=== PATIENT | female | born 1970 | race Caucasian/White ===

== ENCOUNTER 2019-11-17 08:52 | Inpatient (IN) | payer OTHER ==
[2019-11-19] MEDS ORDERED: Lidocaine 1% with EPINEPHrine 1:100,000 50 ML MDV ONE (06:58)
[2019-11-19] MEDS ORDERED: Bupivacaine 0.5% 50 ML MDV ONE (06:58)
[2019-11-19] MEDS ORDERED: Ketamine 500 MG/5 ML MDV IV SCH (07:30)
[2019-11-19] MEDS ORDERED: Magnesium Sulfate 3 GM in Sodium Chloride 0.9% 100 ML IV SCH (07:30)
[2019-11-19] MEDS ORDERED: Ketamine 50 MG in Sodium Chloride 0.9% 49.5 ML IV SCH (07:30)
[2019-11-19] MEDS ORDERED: Celecoxib 200 MG Cap PO ONE (08:30)
[2019-11-19] MEDS ORDERED: Acetaminophen 500 MG Tab PO ONE (08:30)
[2019-11-19] MEDS ORDERED: Scopolamine 1.5 MG Transdermal Patch TOP SCH (08:30)
[2019-11-19] MEDS ORDERED: Dextrose 5%-Lactated Ringers 1,000 ML IV SCH (08:45)
[2019-11-19] MEDS ORDERED: Ondansetron 4 MG/2 ML SDV ONE (08:52)
[2019-11-19] MEDS ORDERED: fentaNYL 250 MCG/5 ML SDV ONE ×2 (08:52→10:37)
[2019-11-19] MEDS ORDERED: Succinylcholine 200 MG/10 ML MDV ONE (08:52)
[2019-11-19] MEDS ORDERED: Glycopyrrolate 0.2 MG/ML 5 ML MDV ONE (08:52)
[2019-11-19] MEDS ORDERED: Propofol 200 MG/20 ML SDV ONE (08:52)
[2019-11-19] MEDS ORDERED: Neostigmine Methylsulfate 1 MG/ML 5 ML Syringe ONE (08:52)
[2019-11-19] MEDS ORDERED: Dexamethasone 4 MG/ML SDV ONE (08:52)
[2019-11-19] MEDS ORDERED: Rocuronium 50 MG/5 ML Vial ONE (08:52)
[2019-11-19] MEDS ORDERED: cefOXitin 2 GM in Sodium Chloride 0.9% 50 ML IV ONE (09:45)
[2019-11-19] MEDS ORDERED: Naloxone 0.4 MG/ML SDV IV PRN (10:08)
[2019-11-19] MEDS: Meropenem 500 MG SDV ONE ×3 (10:58→11:48)
[2019-11-19] MEDS ORDERED: Labetalol 20 MG/4 ML Syringe ONE (10:58)
[2019-11-19] MEDS ORDERED: Lactated Ringers 1,000 ML ONE (11:56)
[2019-11-19] MEDS ORDERED: fentaNYL 100 MCG/2 ML SDV ONE (12:20)
[2019-11-19] MEDS ORDERED: hydrOXYzine HCL 100 MG/2 ML SDV IM ONE (12:27)
[2019-11-19] MEDS: HYDROmorphone/Normal Saline 15 MG/30 ML PCA IV PRN (12:35)
[2019-11-19] MEDS ORDERED: fentaNYL 100 MCG/2 ML SDV IVPUSH ONE (12:44)
[2019-11-19] MEDS ORDERED: Acetaminophen 1,000 MG in Premix Bag 1 BAG IV ONE (13:30)
[2019-11-19] MEDS ORDERED: Midazolam 1 MG/ML 2 ML SDV IVPUSH ONE (13:43)
[2019-11-19] MEDS ORDERED: diphenhydrAMINE 50 MG/ML SDV IVPUSH PRN (15:18)
[2019-11-19] MEDS ORDERED: Acetaminophen 500 MG Tab PO PRN (15:18)
[2019-11-19] MEDS ORDERED: Calcium Gluconate 10% 1 GM/10 ML SDV IVPUSH PRN (15:18)
[2019-11-19] MEDS ORDERED: Labetalol 20 MG/4 ML Syringe IVPUSH PRN (15:18)
[2019-11-19] MEDS ORDERED: Ondansetron 4 MG/2 ML SDV IVPUSH PRN (15:18)
[2019-11-19] MEDS ORDERED: Metoclopramide 10 MG/2 ML SDV IVPUSH PRN (15:18)
[2019-11-19] MEDS ORDERED: hydrOXYzine HCL 100 MG/2 ML SDV IM PRN (15:18)
[2019-11-19] MEDS ORDERED: MVI, Adult with Vitamin K 10 ML, Thiamine 200 MG, Chromium/Copper/Mang/Selen/Zn 1 ML in... IV SCH ×4 (16:00)
[2019-11-19] MEDS: Acetaminophen 500 MG Tab PO SCH ×2 (16:43→23:55)
[2019-11-19] MEDS: Cyclobenzaprine 10 MG Tab PO PRN (16:50)
[2019-11-19] MEDS: cefOXitin 2 GM in Sodium Chloride 0.9% 50 ML IV SCH ×2 (17:32→23:55)
[2019-11-19] MEDS: Heparin Sodium 5,000 Units/ML Vial SUBCUT SCH (17:35)
[2019-11-19] MEDS ORDERED: Pantoprazole 40 MG Vial IVPUSH SCH (20:00)
[2019-11-19] MEDS: Dextrose 5%-Lactated Ringers 1,000 ML IV SCH (23:23)
[2019-11-20] MEDS: Cyclobenzaprine 10 MG Tab PO PRN ×3 (00:50→21:44)
[2019-11-20] MEDS ORDERED: Iopamidol 510 MG/ML 50 ML SDV PO ONE (04:42)
[2019-11-20] MEDS ORDERED: Iopamidol 612 MG/ML 50 ML SDV PO ONE (05:08)
[2019-11-20] MEDS: Dextrose 5%-Lactated Ringers 1,000 ML IV SCH ×3 (05:25→12:42)
[2019-11-20] MEDS: Heparin Sodium 5,000 Units/ML Vial SUBCUT SCH ×2 (05:27→18:24)
[2019-11-20] MEDS: cefOXitin 2 GM in Sodium Chloride 0.9% 50 ML IV SCH ×3 (05:29→18:23)
[2019-11-20] MEDS: Acetaminophen 500 MG Tab PO SCH ×3 (07:12→21:33)
[2019-11-20] MEDS: SCOPOLAMINE PATCH CHECK TOP SCH (08:49)
--- NOTE | 2019-11-20 09:25 | CR ---
[facility] HISTORY: Postbariatric surgery FINDINGS: Patient swallowed water-soluble contrast. Upright views of the abdomen show no evidence of extravasation or obstruction. There is a surgical drain in the right upper quadrant. IMPRESSION: Status post bariatric surgery No extravasation or obstruction seen
[2019-11-20] MEDS: Celecoxib 200 MG Cap PO SCH ×2 (09:31→21:33)
[2019-11-20] MEDS: Bisacodyl 5 MG Tab PO SCH ×2 (09:31→21:34)
[2019-11-20] MEDS: buPROPion 150 MG Tab.SR PO SCH ×2 (09:31→21:33)
[2019-11-20] MEDS: Docusate Sodium 100 MG Cap PO SCH ×2 (09:32→21:33)
[2019-11-20] MEDS: MVI, Adult with Vitamin K 10 ML, Thiamine 200 MG, Chromium/Copper/Mang/Selen/Zn 1 ML in... IV SCH ×4 (16:51)
[2019-11-20] MEDS: Pantoprazole 40 MG Delayed-Release Granules 1 Packet PO SCH (21:33)
[2019-11-21] MEDS: cefOXitin 2 GM in Sodium Chloride 0.9% 50 ML IV SCH ×3 (00:18→12:39)
[2019-11-21] MEDS: Dextrose 5%-Lactated Ringers 1,000 ML IV SCH (03:34)
[2019-11-21] MEDS: Heparin Sodium 5,000 Units/ML Vial SUBCUT SCH ×2 (05:25→17:40)
[2019-11-21] MEDS: Acetaminophen 500 MG Tab PO SCH ×3 (05:25→21:11)
[2019-11-21] MEDS: HYDROmorphone/Normal Saline 15 MG/30 ML PCA IV PRN (06:45)
[2019-11-21] MEDS ORDERED: Cyanocobalamin (Vitamin B12) 1,000 MCG/ML SDV IM ONE (09:00)
[2019-11-21] MEDS: Bisacodyl 5 MG Tab PO SCH ×2 (09:15→21:11)
[2019-11-21] MEDS: Celecoxib 200 MG Cap PO SCH ×2 (09:15→21:11)
[2019-11-21] MEDS: Docusate Sodium 100 MG Cap PO SCH ×2 (09:15→21:11)
[2019-11-21] MEDS: buPROPion 150 MG Tab.SR PO SCH ×2 (09:15→21:11)
[2019-11-21] MEDS: SCOPOLAMINE PATCH CHECK TOP SCH (09:16)
[2019-11-21] MEDS: oxyCODONE 5 MG Tab PO PRN ×2 (11:06→15:48)
[2019-11-21] MEDS: Cyclobenzaprine 10 MG Tab PO PRN (14:12)
[2019-11-21] MEDS: MVI, Adult with Vitamin K 10 ML, Thiamine 200 MG, Chromium/Copper/Mang/Selen/Zn 1 ML in... IV SCH ×4 (16:50)
[2019-11-21] MEDS: Pantoprazole 40 MG Delayed-Release Granules 1 Packet PO SCH (21:11)
[2019-11-22] MEDS: Heparin Sodium 5,000 Units/ML Vial SUBCUT SCH (06:11)
[2019-11-22] MEDS: Acetaminophen 500 MG Tab PO SCH (06:11)
[2019-11-22] MEDS: Cyclobenzaprine 10 MG Tab PO PRN (06:15)
[2019-11-22] MEDS: oxyCODONE 5 MG Tab PO PRN ×2 (06:15→10:23)
[2019-11-22] MEDS ORDERED: Magnesium Hydroxide 400 MG/5 ML Susp 30 ML Cup PO ONE (08:17)
[2019-11-22] MEDS: Bisacodyl 5 MG Tab PO SCH (10:07)
[2019-11-22] MEDS: buPROPion 150 MG Tab.SR PO SCH (10:07)
[2019-11-22] MEDS: Docusate Sodium 100 MG Cap PO SCH (10:07)
[2019-11-22] MEDS: Celecoxib 200 MG Cap PO SCH (10:07)
--- NOTE | 2019-11-22 12:39 | PN ---
DATE OF SERVICE: 11/20/2019 The patient has been afebrile with stable vital signs. Good urine output overnight. Upper GI x-ray looks good and labs likewise look satisfactory. We will back down the IV rate, go to a step-2 diet today, and restart her pertinent oral medications. MISSING PERSONS INVESTIGATOR only for today. Randy Chinchilla MD /[id number]
--- NOTE | 2019-11-22 12:51 | PN ---
DATE OF SERVICE: 11/21/2019 The patient has been afebrile with stable vital signs. Oral intake was fairly good, and we will go up to a step-3 diet today and oral pain medications. She may be ready for discharge home tomorrow. Randy Chinchilla MD /[id number]
--- NOTE | 2019-11-23 12:43 | DISCH ---
FINAL DIAGNOSES: 1. Partial small bowel resection with jejunojejunostomy. 2. Vascular compression of the duodenum. SECONDARY DIAGNOSES: 1. Bariatric surgery status. 2. History of iron deficiency anemia. OPERATIVE PROCEDURES: Done on 11/18, exploratory laparotomy with lysis of adhesions and: 1. Small-bowel resection with takedown revision of the jejunojejunostomy. 2. Formation of Sherri-en-Y duodenojejunostomy for treatment of vascular compression of the duodenum. SUMMARY: This is a 49-year-old female status post previous Sherri-en-Y gastric bypass, presenting with some ongoing abdominal pain. Workup was consistent with the patient having both partial small bowel obstruction at the jejunojejunostomy. It was notable also that, compared to the prior CT scan, her duodenum in the 2nd and 3rd portions was quite strikingly dilated, and there appeared to be development of a narrowing of the angle between the superior mesenteric artery and aorta, causing vascular compression of the duodenum. On the date of admission, the patient underwent exploratory laparotomy. The small bowel was resected at the level where the Sherri limb entered the jejunojejunostomy, which appeared to be the point of partial obstruction in that area. This was revised somewhat more distally to facilitate more weight loss. She also then had a Sherri-en-Y duodenojejunostomy formed to decompress the duodenum above the level of the vascular compression. Postoperatively, she has done well. At this point, she is tolerating a step-3 gastric bypass diet and will be discharged to home. Followup will be with Shaylee Garrett at [facility] on 11/30/2019. MEDICATIONS ON DISCHARGE: Will include: 1. Oxycodone 5 mg p.o. q.4 hours p.r.n. pain, #42. 2. Flexeril 10 mg p.o. t.i.d. p.r.n. muscle spasm, #30, refill x1. 3. Tylenol 1 g p.o. q.i.d. p.r.n. 4. We will send her home with two doses of milk of magnesia to take p.r.n. constipation. She will be instructed to hold her naltrexone until she is off the oxycodone.
--- NOTE | 2019-11-24 16:13 | OR ---
DATE OF PROCEDURE: 11/19/2019 SURGEON: Randy Chinchilla MD PREOPERATIVE DIAGNOSES: 1. Partial small bowel obstruction at jejunojejunostomy. 2. Vascular compression of duodenum. POSTOPERATIVE DIAGNOSES: 1. Partial small bowel obstruction at jejunojejunostomy. 2. Vascular compression of duodenum. OPERATIVE PROCEDURES: Exploratory laparotomy with lysis of adhesions: 1. Small bowel resection (22306). 2. Formation of Sherri-en-Y duodenojejunostomy (18321). 3. Takedown of duodenal bands associated with vascular compression of duodenum (40168). ANESTHESIA: General. RN TRANSITIONAL: Shaylee Garrett PA-C INDICATIONS FOR PROCEDURE: A 49-year-old status post Sherri-en-Y gastric bypass, presenting with some postprandial upper abdominal pain. CT scan is suggestive of some angulation and distention of the area of the jejunojejunostomy, revealing an area of partial obstruction. The patient was also noted upon interval CT scan to have developed a marked dilation of the 2nd and 3rd portions of the duodenum. Examination of the inferior mesenteric artery and aorta in that area do show some narrowing and probable compression of the duodenum at that level consistent with vascular compression of the duodenum. The plan at this point will be to proceed with exploratory laparotomy with lysis of adhesions and release of the obstruction, possible revision of the jejunojejunostomy, and while we are in the abdomen, it would appear to be prudent to decompress the duodenum, in view of the probable vascular compression of the duodenum. Potential risks of the procedure including bleeding, infection, leaks from various GI tract closures, problems with bowel obstruction over time were all reviewed, and the patient wishes to proceed. The patient has chronic severe constipation and does have significant persistent obesity. Given this, if the area around the jejunojejunostomy needs to be revised, the intention would be to reform that in a way that it would provide more malabsorptive small bowel configuration, which should help with both weight loss, as well as the problems with constipation. The potential downsides including some possible frequent loose bowel movements, as well as malnutrition issues were reviewed with the patient, and she likewise wishes to proceed. PROCEDURE IN DETAIL: The patient was taken to the operating room, and after general endotracheal anesthesia was induced, Perez catheter was inserted, and the abdomen prepped and draped. Upper midline incision was made and carried through the skin, subcutaneous tissue, and down to the full-thickness abdominal wall. Upon entering the peritoneal cavity, general exploration was undertaken. As noted on the CT scan, the 2nd and 3rd portions of the duodenum were noted to be quite dilated and somewhat edematous in appearance. The area of jejunojejunostomy was then evaluated, and this likewise was noted to have area of angulation. After takedown of adhesions, there appeared to be some narrowing of the point where the Sherri limb entered the jejunojejunostomy. Some filmy adhesions over this area were then taken down, and at that point, that improved the junction of the Sherri limb as it entered the jejunojejunostomy, at least to the point where it would be accommodating of the biliopancreatic secretions without significant problem. Given this, the Sherri limb was then divided roughly 15 cm proximal to the anastomosis, and this measurement was marked out, such that the divided end would come up to the junction of the 2nd and 3rd portions of the duodenum without tension. Following this, then the distal divided end of that small bowel was brought up adjacent to the 2nd and 3rd portions of the duodenum, and a stay suture with a 3-0 Vicryl stitch was placed, and after small enterotomies were placed in both structures, 60 mm fowler load was fired into the adjacent segments of small bowel, thus creating the internal anastomosis. Common opening was then closed transversely with a purple load, and the angles of anastomosis and mesenteric defect reinforced with some 3-0 Vicryl stitch, along with fibrin sealant. Continuing on the left side of the area around the ligament of Treitz, that area was then dissected free and the duodenal bands associated with vascular compression of duodenum, i.e. the Rousseau's bands, in that area were divided, and this allowed significant descent of the duodenum where it passed underneath the superior mesenteric artery, widening that opening somewhat further as well. The remaining Sherri limb was then measured out to be 80 cm, and then we elected to reconstruct the small bowel anatomy, creating anastomosis beginning at the small bowel at that level and the small bowel roughly 250 cm proximal to the ileocecal valve, thus giving the patient a total alimentary length of around 330 cm but with predominance of that being within the common limb. The biliopancreatic limb was noted to be 340 cm. This anastomosis was accomplished with internal firing of the Endo-RASHI 60 mm stapler, common opening was closed transversely with same stapler, and the angles of anastomosis and mesenteric defect approximated with some 3-0 Vicryl stitch, and at that point, no further problems were noted. Single Jairo-Bajwa drain was then placed through a stab wound in the right subcostal area, placed across the area of the duodenojejunostomy. The abdomen was irrigated with meropenem- containing saline solution. Midline fascia was then approximated with #2 Vicryl stitch and subcutaneous tissue with 4-0 Vicryl stitch and skin with felicia. Prior to closure, bilateral transversus abdominis plane blocks were placed and the midline fascia was also anesthetized with some 1% lidocaine with Marcaine. The patient was taken to the recovery room in satisfactory condition. Physician assistant manager bilingual, Shaylee Garrett, played an essential role in assisting in this case, helping to position the patient, retract structures as needed, as well as suturing and cutting sutures and stapling as needed. Her presence improved patient safety and decreased operative time. Randy Chinchilla MD /[id number]
== END 2019-11-22 12:45 | disposition home or self-care (01) | DRG 327 ==
LOC: JP.SDSSCHI 11-19 08:12 → JP.SDS 11-19 08:12 → EDSTATUS 11-19 08:45 → JP.MS 11-19 12:05
PROVIDERS: ADMIT Surgery; ATTEND Surgery
PROC: 0D160ZA Bypass Stomach to Jejunum, Open Approach (ICD-10-PCS; principal; 2019-11-19)
PROC: 0DB80ZZ Excision of Small Intestine, Open Approach (ICD-10-PCS; 2019-11-19)
DX: K56.600 Partial intestinal obstruction, unspecified as to cause (principal); I87.1 Compression of vein; D50.9 Iron deficiency anemia, unspecified; E53.8 Deficiency of other specified B group vitamins; Z98.51 Tubal ligation status; Z90.49 Acquired absence of other specified parts of digestive tract; Z98.84 Bariatric surgery status; Z90.89 Acquired absence of other organs
CPT/HCPCS: 36415; 74240; 74240-26; 80053; 83735; 83880; 84100; 85027; 93005; 94762; A9270-GY; C9113; J0131; J0171; J0330; J0694; J1100; J1170; J1644; J2185; J2250; J2405; J2704; J2710; J2795; J3010; J3410; J3411; J3420; J3475; J3490; J7050; J7120; J7121; Q9967

== ENCOUNTER 2022-10-08 07:22 | Inpatient (IN) | payer OTHER ==
[~2022-10-08 07:22] MED LIST: Bupivacaine 0.5% 50 ML MDV ONE; Dexamethasone 4 MG/ML SDV ONE; Glycopyrrolate 0.2 MG/ML 5 ML MDV ONE; Lidocaine 1% with EPINEPHrine 1:100,000 50 ML MDV ONE; Meropenem 500 MG SDV ONE; Neostigmine Methylsulfate 1 MG/ML 5 ML Syringe ONE; Ondansetron 4 MG/2 ML SDV ONE; Propofol 200 MG/20 ML SDV ONE; Rocuronium 50 MG/5 ML Vial ONE; Succinylcholine 200 MG/10 ML MDV ONE; fentaNYL 250 MCG/5 ML SDV ONE
[2022-10-08] MEDS ORDERED: Celecoxib 200 MG Cap PO ONE (07:30)
[2022-10-08] MEDS ORDERED: Ropivacaine 38 ML, dexAMETHasone 8 MG, EPINEPHrine 0.4 MG, Sodium Chloride 0.9% 39.6 ML NERVRT SCH ×4 (07:30)
[2022-10-08] MEDS ORDERED: Ketamine 18 MG in Sodium Chloride 0.9% 19.82 ML IV SCH (07:30)
[2022-10-08] MEDS ORDERED: Scopolamine 1.5 MG Transdermal Patch TOP ONE (07:30)
[2022-10-08] MEDS ORDERED: Ketamine 500 MG/5 ML MDV IV SCH (07:30)
[2022-10-08] MEDS ORDERED: cefOXitin 2 GM in Sodium Chloride 0.9% 50 ML IV ONE (07:30)
[2022-10-08 08:00] LABS: HEMATOCRIT 33.1 % (34.3-46.0); HEMOGLOBIN 10.1 g/dL (11.2-15.5); MEAN CORPUSCULAR HGB CONC 30.5 g/dL (31.6-35.5); MEAN CORPUSCULAR VOLUME 101.5 fL (81.4-99.0); RED BLOOD CELL COUNT 3.26 M/uL (3.77-5.24); WHITE BLOOD CELL COUNT,WBC 5.9 K/uL (3.2-11.0)
[2022-10-08] MEDS ORDERED: Dextrose 5%-Lactated Ringers 1,000 ML IV SCH ×2 (08:00→13:45)
[2022-10-08 08:19] LABS: HEMOGLOBIN A1C 4.1 % (4.5-6.2)
[2022-10-08] MEDS ORDERED: diphenhydrAMINE 50 MG/ML SDV IVPUSH PRN ×2 (08:42→14:00)
[2022-10-08] MEDS ORDERED: Naloxone 0.4 MG/ML SDV IVPUSH PRN (08:42)
[2022-10-08] MEDS ORDERED: Ondansetron 4 MG/2 ML SDV IVPUSH PRN ×2 (08:42→14:00)
[2022-10-08] MEDS ORDERED: diphenhydrAMINE 25 MG Cap PO PRN (08:42)
[2022-10-08 08:46] LABS: ALANINE AMINOTRANSFERASE,ALT 18 U/L (12-78); ALBUMIN 3.2 g/dL (3.4-5.0); ALKALINE PHOSPHATASE 83 U/L (46-116); ANION GAP 4.7 mmol/L (5.0-14.0); ASPARTATE AMNIOTRANSFERASE,AST 15 U/L (15-37); BILIRUBIN TOTAL 0.6 mg/dL (0.2-1.0); BLOOD UREA NITROGEN,BUN 14 mg/dL (7-18); CALCIUM 8.5 mg/dL (8.5-10.1); CARBON DIOXIDE,CO2 28 mmol/L (21-32); CHLORIDE,CL 108 mmol/L (100-108); CREATININE 0.7 mg/dL (0.6-1.0); EST CRCL DRUG DOSING (CG) 94.84 mL/min; ESTIMATED GFR 104 mL/min (>60); FOLIC ACID 17.2 ng/ml (8.6-58.9); GLUCOSE RANDOM 87 mg/dL (74-106); MAGNESIUM 1.7 mg/dL (1.8-2.4); PHOSPHORUS 3.8 mg/dL (2.5-4.9); POTASSIUM,K 3.8 mmol/L (3.6-5.2); PROTEIN TOTAL,TP 6.5 g/dL (6.4-8.2); SODIUM,NA 141 mmol/L (140-148)
[2022-10-08] MEDS ORDERED: Linezolid 600 MG/300 ML Premix Bag IRR ONE (09:45)
[2022-10-08] MEDS: HYDROmorphone/Normal Saline 6 MG/30 ML PCA Vial IV PRN (09:49)
[2022-10-08] MEDS ORDERED: Lactated Ringers 1,000 ML ONE (10:16)
[2022-10-08] MEDS ORDERED: Mupirocin Oint 22 GM Tube ONE (11:07)
[2022-10-08] MEDS ORDERED: fentaNYL 100 MCG/2 ML SDV ONE (11:37)
[2022-10-08] MEDS ORDERED: hydrOXYzine HCl 50 MG/ML SDV IM ONE (12:14)
[2022-10-08] MEDS: Cyclobenzaprine 10 MG Tab PO PRN (13:35)
[2022-10-08] MEDS ORDERED: Labetalol 20 MG/4 ML Syringe IVPUSH PRN (14:00)
[2022-10-08] MEDS ORDERED: Metoclopramide 10 MG/2 ML SDV IVPUSH PRN (14:00)
[2022-10-08] MEDS: cefOXitin 2 GM in Sodium Chloride 0.9% 50 ML IV SCH ×2 (14:41→21:43)
[2022-10-08] MEDS ORDERED: Pantoprazole 40 MG Vial IVPUSH SCH (15:00)
[2022-10-08] MEDS: Sodium Ferric Gluconate Cmplex 250 MG in Sodium Chloride 0.9% 100 ML IV SCH (15:23)
[2022-10-08] MEDS: Acetaminophen 500 MG Tab PO PRN (15:24)
[2022-10-08] MEDS ORDERED: hydrOXYzine HCl 50 MG/ML SDV IM PRN (16:30)
[2022-10-08] MEDS: MVI, Adult with Vitamin K 10 ML, Thiamine 200 MG, Zinc/Copper/Manganese/Selenium 1 ML i... IV SCH ×4 (19:35)
[2022-10-08] MEDS ORDERED: Naltrexone 50 MG Tab PO SCH (21:00)
[2022-10-08] MEDS: Acetaminophen 500 MG Tab PO SCH (21:44)
[2022-10-08] MEDS: Heparin Sodium 5,000 Units/ML Vial SUBCUT SCH (21:45)
[2022-10-08] MEDS ORDERED: Tranexamic Acid 1,000 MG in Sodium Chloride 0.9% 50 ML IV ONE (23:00)
[2022-10-08] MEDS ORDERED: Tranexamic Acid 1,000 MG in Sodium Chloride 0.9% 500 ML IV ONE (23:00)
[2022-10-09] MEDS: cefOXitin 2 GM in Sodium Chloride 0.9% 50 ML IV SCH ×4 (02:34→21:24)
[2022-10-09] MEDS ORDERED: Tranexamic Acid 1,000 MG in Sodium Chloride 0.9% 50 ML IV ONE (03:00)
[2022-10-09] MEDS ORDERED: Iopamidol 612 MG/ML 30 ML SDV PO STA (03:01)
[2022-10-09] MEDS: HYDROmorphone/Normal Saline 6 MG/30 ML PCA Vial IV PRN (03:39)
[2022-10-09 04:20] LABS: BASOPHILS ABSOLUTE AUTO 0.11 K/uL (0.00-0.10); BASOPHILS PERCENT AUTO 0.6 % (0.1-1.3); EOSINOPHILS ABSOLUTE AUTO 0.15 K/uL (0.00-0.40); EOSINOPHILS PERCENT AUTO 0.8 % (0.0-5.4); HEMATOCRIT 30.9 % (34.3-46.0); HEMOGLOBIN 9.6 g/dL (11.2-15.5); IMMATURE GRAN PERCENT AUTO 0.5 % (0.0-0.7); LYMPHOCYTES ABSOLUTE AUTO 0.85 K/uL (0.8-3.3); LYMPHOCYTES PERCENT AUTO 4.5 % (11.4-47.7); MEAN CORPUSCULAR HEMOGLOBIN 31.1 pg (31.6-35.5); MEAN CORPUSCULAR HGB CONC 31.1 g/dL (31.6-35.5); MONOCYTES ABSOLUTE AUTO 1.08 K/uL (0.20-0.90); MONOCYTES PERCENT AUTO 5.7 % (3.3-12.6); NEUTROPHILS ABSOLUTE AUTO 16.81 K/uL (1.0-7.6); NEUTROPHILS PERCENT AUTO 87.9 % (40.0-78.1); PLATELET COUNT,PLT 209 K/uL (130-375); RED BLOOD CELL COUNT 3.09 M/uL (3.77-5.24); WHITE BLOOD CELL COUNT,WBC 19.1 K/uL (3.2-11.0)
[2022-10-09] MEDS: Acetaminophen 500 MG Tab PO SCH ×3 (06:09→21:23)
[2022-10-09] MEDS ORDERED: Ondansetron 4 MG Tab.DIS PO PRN (07:09)
[2022-10-09] MEDS ORDERED: Dextrose 5%-Lactated Ringers 1,000 ML IV SCH (07:15)
[2022-10-09] MEDS: Cyclobenzaprine 10 MG Tab PO PRN ×2 (07:24→18:17)
[2022-10-09] MEDS: Heparin Sodium 5,000 Units/ML Vial SUBCUT SCH ×2 (07:26→19:57)
[2022-10-09] MEDS: SCOPOLAMINE PATCH CHECK TOP SCH (08:45)
[2022-10-09] MEDS ORDERED: CHECK SCOPOLAMINE PATCH DAILY SCH (09:00)
[2022-10-09] MEDS: Celecoxib 200 MG Cap PO SCH ×2 (09:30→21:23)
[2022-10-09] MEDS: Pantoprazole 40 MG Tab.CR PO SCH (11:17)
[2022-10-09] MEDS: Sodium Ferric Gluconate Cmplex 250 MG in Sodium Chloride 0.9% 100 ML IV SCH (15:41)
[2022-10-09] MEDS: MVI, Adult with Vitamin K 10 ML, Thiamine 200 MG, Zinc/Copper/Manganese/Selenium 1 ML i... IV SCH ×4 (19:51)
[2022-10-10] MEDS: cefOXitin 2 GM in Sodium Chloride 0.9% 50 ML IV SCH ×2 (03:05→08:58)
[2022-10-10] MEDS: Acetaminophen 500 MG Tab PO SCH ×2 (05:44→14:47)
[2022-10-10] MEDS: Heparin Sodium 5,000 Units/ML Vial SUBCUT SCH (07:05)
[2022-10-10] MEDS: Pantoprazole 40 MG Tab.CR PO SCH (07:05)
[2022-10-10] MEDS: HYDROmorphone 2 MG Tab PO PRN ×2 (07:30→14:47)
[2022-10-10] MEDS: Celecoxib 200 MG Cap PO SCH (08:57)
[2022-10-10] MEDS: SCOPOLAMINE PATCH CHECK TOP SCH (08:58)
[2022-10-10] MEDS ORDERED: Cyanocobalamin (Vitamin B12) 1,000 MCG/ML SDV IM ONE (09:00)
[2022-10-10] MEDS: Cyclobenzaprine 10 MG Tab PO PRN (11:24)
[2022-10-10] MEDS: Acetaminophen 500 MG Tab PO PRN (11:24)
== END 2022-10-10 16:00 | disposition home or self-care (01) | DRG 329 ==
LOC: JP.SDS 07:22 → JP.MS 11:45
PROVIDERS: ADMIT Surgery; ATTEND Surgery
PROC: 0DNU0ZZ Release Omentum, Open Approach (ICD-10-PCS; principal; 2022-10-08)
PROC: 0FB20ZX Excision of Left Lobe Liver, Open Approach, Diagnostic (ICD-10-PCS; principal; 2022-10-08)
PROC: 0WUF0JZ Supplement Abdominal Wall with Synthetic Substitute, Open Approach (ICD-10-PCS; principal; 2022-10-08)
PROC: 0DT80ZZ Resection of Small Intestine, Open Approach (ICD-10-PCS; principal; 2022-10-08)
PROC: 0DS80ZZ Reposition Small Intestine, Open Approach (ICD-10-PCS; principal; 2022-10-08)
PROC: 0DNW0ZZ Release Peritoneum, Open Approach (ICD-10-PCS; principal; 2022-10-08)
DX: K42.0 Umbilical hernia with obstruction, without gangrene (principal); K56.2 Volvulus; E53.9 Vitamin B deficiency, unspecified; E53.8 Deficiency of other specified B group vitamins; K43.0 Incisional hernia with obstruction, without gangrene; D50.9 Iron deficiency anemia, unspecified; Z98.84 Bariatric surgery status; Z86.718 Personal history of other venous thrombosis and embolism; Z90.49 Acquired absence of other specified parts of digestive tract; Z98.890 Other specified postprocedural states; Z98.51 Tubal ligation status; Z90.710 Acquired absence of both cervix and uterus; Z90.89 Acquired absence of other organs
CPT/HCPCS: 36415; 74240; 74240-26; 80053; 82607; 82746; 83036; 83735; 84100; 85025; 85027; 88302; 88307; A9270-GY; C1713; C1781; C9113; J0131; J0171; J0330; J0694; J1100; J1170; J1644; J2020; J2185; J2405; J2704; J2710; J2795; J2916; J3010; J3410; J3411; J3420; J3490; J7120; J7121; Q9967